=== PATIENT | male | born 1950 | race Caucasian/White ===

== ENCOUNTER 2019-04-08 12:58 | Emergency (ER) | payer OTHER, MEDICARE ==
[2019-04-08 13:10] VITALS: TEMP 97
[2019-04-08] MEDS ORDERED: DIAZEPAM 5 MG/ML 2 ML INJ IVP STA (13:16)
[2019-04-08 13:51] VITALS: RESP 18
[2019-04-08 14:07] LABS: Basophils % (A) 0 %; Eosinophils # (A) 0.1 k/uL (0-0.7); Eosinophils % (A) 0 %; HCT 45.8 % (39.0-53.0); HGB 15.4 gm/dL (13.0-17.5); Lymphocytes % (A) 9 %; MCH 31.9 pg (25.0-35.0); MCHC 33.7 g/dL (31.0-37.0); MCV 94.8 fL (80.0-100.0); Mean Platelet Volume 6.2; Monocytes # (A) 0.5 k/uL (0-1.0); Monocytes % (A) 4 %; Neutrophils # (A) 9.9 k/uL (1.3-7.7); Neutrophils % (A) 86 %; Platelet Count 233 k/uL (150-450); RBC 4.83 m/uL (4.30-5.90); RDW 13.3 % (11.5-15.5); WBC 11.6 k/uL (3.8-10.6)
[2019-04-08 14:17] LABS: Albumin 3.7 g/dL (3.5-5.0); Calcium 8.9 mg/dL (8.4-10.2); Potassium 4.3 mmol/L (3.5-5.1); Total Bilirubin 0.5 mg/dL (0.2-1.3); Total Protein 6.6 g/dL (6.3-8.2)
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
[2019-04-08 14:30] LABS: INR 0.9 (<1.2); Prothrombin Time 10.1 sec (9.0-12.0)
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
[2019-04-08 15:34] VITALS: BP 118/73; PULSE 72
== END 2019-04-08 15:34 | disposition home or self-care (01) ==
LOC: EC 12:58
DX: M54.5 Low back pain (principal); R10.9 Unspecified abdominal pain; F17.200 Nicotine dependence, unspecified, uncomplicated; V89.0XXA Person injured in unspecified motor-vehicle accident, nontraffic, initial encounter; Y92.410 Unspecified street and highway as the place of occurrence of the external cause
CPT/HCPCS: 36415; 80053; 85025; 85610; 85730; 74177; 99285; 96374; J3360

== ENCOUNTER → 2019-08-23 | Outpatient (CLI) | payer OTHER ==
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
== END | disposition home or self-care (01) ==
LOC: RADMRIMAIN 08:33
PROVIDERS: ATTEND Nurse Practitioner Family
DX: M43.06 Spondylolysis, lumbar region (principal); M51.36 Other intervertebral disc degeneration, lumbar region; M47.896 Other spondylosis, lumbar region; M47.897 Other spondylosis, lumbosacral region; M43.8X6 Other specified deforming dorsopathies, lumbar region
CPT/HCPCS: 72148

== ENCOUNTER → 2020-01-02 | Outpatient (CLI) | payer OTHER ==
--- NOTE | 2020-01-02 14:09 | NM ---
EXAMINATION TYPE: NM bone scan whole body DATE OF EXAM: 01/02/2020 COMPARISON: NONE HISTORY: Pain Delayed whole-body scanning was performed following the injection of 24.3 mCi Tc 99m MDP. Images acq uired 3 hours post injection. FINDINGS: Abnormal uptake involving the mandible and maxilla likely related to periodontal disease. Abnormal uptake involving the hands, knees, feet, and shoulders likely post arthritic. Linear band of moderate intensity uptake in the proximal level of T12 likely corresponds the MRI comp ression fracture. Faint uptake seen throughout the lower thoracic and portions of the mid and upper l umbar spine likely degenerative. IMPRESSION: 1. Linear moderate intensity uptake proximal level T12 corresponds to the compression fracture seen b y previous MRI. 2. Abnormal uptake involving the thoracic and lumbar spine obtained to mild intensity generative.
== END | disposition home or self-care (01) ==
LOC: RADNMMAIN 09:45
PROVIDERS: ATTEND Orthopaedic Surgery Orthopaedic Surgery of the Spine
DX: R93.7 Abnormal findings on diagnostic imaging of other parts of musculoskeletal system (principal)
CPT/HCPCS: 78306; A9503

== ENCOUNTER → 2020-02-25 | Outpatient (CLI) | payer OTHER ==
--- NOTE | 2020-02-25 14:41 | XR ---
Right RIBS HISTORY: Back pain 4 views of the right ribs Bone mineralization is maintained. There is no evident displaced rib fracture. No pneumothorax or ple ural effusion. Multilevel thoracic spondylosis and lumbar spondylosis is noted. Degenerative changes are present at the costovertebral angles of the ribs. IMPRESSION: Osteoarthritic changes, degenerative disc disease.
== END | disposition home or self-care (01) ==
LOC: RADXRMAIN 13:12
PROVIDERS: ATTEND Physical Medicine & Rehabilitation
DX: M47.814 Spondylosis without myelopathy or radiculopathy, thoracic region (principal); R07.81 Pleurodynia; M51.36 Other intervertebral disc degeneration, lumbar region

== ENCOUNTER → 2020-10-19 | Outpatient (CLI) | payer OTHER ==
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
== END | disposition home or self-care (01) ==
LOC: RADCTMAIN 10:50
PROVIDERS: ATTEND Psychiatry & Neurology Neurology
DX: R10.9 Unspecified abdominal pain (principal); J98.11 Atelectasis
CPT/HCPCS: 82565; 84520; 74177; 36415; Q9967 ×2